=== PATIENT | female | born 1970 | race American Indian/Alaskan Native ===

== ENCOUNTER 2016-12-09 19:09 | Inpatient (IN) | payer OTHER ==
[2016-12-09 20:20] LABS: Mean Corpuscular HGB Conc 26 % (30-34); Platelet Count 596 K/mm3 (140-440); Red Blood Count 2.77 M/mm3 (3.65-5.03)
[2016-12-09 20:31] LABS: Hemoglobin 4.2 gm/dl (10.1-14.3)
[2016-12-09 20:32] LABS: Hematocrit 16.1 % (30.3-42.9); Mean Corpuscular Hemoglobin 15 pg (28-32); Mean Corpuscular Volume 58 fl (79-97); Red Cell Distribution Width 26.6 % (13.2-15.2)
[2016-12-09 20:39] LABS: Anion Gap 18 mmol/L; BUN/Creatinine Ratio 13.33; Blood Urea Nitrogen 8 mg/dL (7-17); Carbon Dioxide 22 mmol/L (22-30); Chloride 103.4 mmol/L (98-107); Glucose 94 mg/dL (65-100); Potassium 4.2 mmol/L (3.6-5.0); Sodium 139 mmol/L (137-145)
[2016-12-09] MEDS ORDERED: NACL 0.9% 500 ML 500 ML IV ONE (21:06)
--- NOTE | 2016-12-09 21:15 | Emergency Department Report ---
ED General Adult HPI - General Chief complaint: Chest Pain Stated complaint: CHEST PAIN/SOB/DIZZINESS/FATIGUE Time Seen by Provider: 12/09/16 21:04 Source: patient, RN notes reviewed, old records reviewed Mode of arrival: Ambulatory Limitations: Physical Limitation - History of Present Illness Initial comments: This is a 46-year-old female. She is previously unknown to me. Does not have a primary care doctor. Does not have a software test manager. Patient has a history of uterine fibroids, irregular menstruation, has been admitted in the past for symptomatic anemia secondary to vaginal bleeding. Patient comes to the ER complaining of malaise, fatigue, weakness, shortness of breath, decreased exercise tolerance. There is no hematemesis. There is no bright red blood per rectum. To me she denies chest pain. Patient states her symptoms today are similar to prior episodes of symptomatic anemia. She reports that she has no pain at this time. She is not vaginally bleeding at this time. States she is not . -: Gradual Consistency: intermittent Improves with: rest Worsens with: movement Associated Symptoms: loss of appetite, malaise, shortness of breath, weakness - Related Data Home Medications Medication Instructions Recorded Confirmed Last Taken No Known Home Medications [No 12/09/16 12/09/16 Unknown Reported Home Medications] Allergies Allergy/AdvReac Type Severity Reaction Status Date / Time egg yolk Allergy Vomiting Verified 12/09/16 19:41 ibuprofen Allergy Swelling Verified 06/28/16 13:19 ED Review of Systems ROS: Stated complaint: CHEST PAIN/SOB/DIZZINESS/FATIGUE Other details as noted in HPI Constitutional: malaise, weakness Eyes: denies: eye discharge ENT: denies: epistaxis Respiratory: shortness of breath Cardiovascular: dyspnea on exertion Gastrointestinal: denies: vomiting Genitourinary: abnormal menses Musculoskeletal: as per HPI Skin: as per HPI Neurological: as per HPI, weakness Psychiatric: as per HPI Hematological/Lymphatic: easy bleeding ED Past Medical Hx - Past Medical History Hx Congestive Heart Failure: No Hx Diabetes: No Hx Psychiatric Treatment: (depression) Hx Asthma: No Hx COPD: No Hx HIV: No Additional medical history: anemia,fibroids - Surgical History Additional Surgical History: tubilagation - Social History Smoking Status: Current Every Day Smoker Substance Use Type: None, Alcohol - Medications Home Medications: Home Medications Medication Instructions Recorded Confirmed Last Taken Type No Known Home Medications [No 12/09/16 12/09/16 Unknown History Reported Home Medications] ED Physical Exam - General Limitations: Physical Limitation General appearance: alert, in no apparent distress - Head Head exam: Present: atraumatic, normocephalic - Eye Eye exam: Present: EOMI. Absent: normal appearance (bilateral conjunctiva are pale), nystagmus - ENT ENT exam: Present: normal exam, normal orophraynx, mucous membranes moist - Neck Neck exam: Present: normal inspection, full ROM. Absent: tenderness, meningismus - Respiratory Respiratory exam: Present: normal lung sounds bilaterally. Absent: respiratory distress, wheezes, rales, rhonchi, stridor, chest wall tenderness - Cardiovascular Cardiovascular Exam: Present: normal rhythm, tachycardia, normal heart sounds. Absent: systolic murmur, diastolic murmur, rubs, gallop - GI/Abdominal GI/Abdominal exam: Present: soft, normal bowel sounds. Absent: distended, tenderness, guarding, rebound, rigid, pulsatile mass - Extremities Exam Extremities exam: Present: normal inspection, full ROM, normal capillary refill. Absent: tenderness, pedal edema, joint swelling, calf tenderness - Back Exam Back exam: Present: normal inspection, full ROM. Absent: tenderness, CVA tenderness (R), CVA tenderness (L), muscle spasm, paraspinal tenderness, vertebral tenderness - Neurological Exam Neurological exam: Present: alert, oriented X3, other (Extraocular movements intact. Tongue midline. No facial droop. Facial sensation intact to light touch in the V1, V2, V3 distribution bilaterally. 5 and 5 strength in 4 extremities.. Sensation is intact to light touch in 4 extremities.). Absent: motor sensory deficit - Psychiatric Psychiatric exam: Present: normal affect, normal mood - Skin Skin exam: Present: warm, dry, intact, normal color. Absent: rash ED Course Vital Signs 12/09/16 12/09/16 12/09/16 19:34 22:00 22:01 Temperature 98.4 F Pulse Rate 107 H Respiratory 20 20 20 Rate Blood Pressure 114/71 Blood Pressure [Right] O2 Sat by Pulse 100 100 Oximetry 12/09/16 12/09/16 22:04 22:34 Temperature 98.7 F Pulse Rate 84 Respiratory 20 20 Rate Blood Pressure Blood Pressure 114/67 [Right] O2 Sat by Pulse 100 Oximetry - Reevaluation(s) Reevaluation #1: 12/09/16 21:13 differential diagnosis: Symptomatic anemia, menorrhagia, MetroragGhia assessment and plan: 46-year-old female who does not have a primary care doctor or software test manager, has a sonographically confirmed presence of fibroids from an ultrasound performed May 2016, with profound symptomatic anemia, and thrombocytosis, with a hemoglobin/hematocrit of 4/16. To me she denies chest pain. She reports that she is not . She denies hematemesis of bright red blood per rectum. IV has been ordered. IV fluids have been ordered. Red blood cell transfusion has been ordered. I doubt acute coronary syndrome secondary to her underlying anemia. Her EKG is morphologically abnormal, may be due to demand. I have placed a page to the Hospital physician, I am awaiting them to call back. Reevaluation #2: 12/09/16 21:27 Dr Breaux accepts patient to her service ED Medical Decision Making - Lab Data Result diagrams: 12/09/16 20:05 12/09/16 20:05 Vital Signs 12/09/16 19:34 Temperature 98.4 F Pulse Rate 107 H Respiratory 20 Rate Blood Pressure 114/71 Labs 12/09/16 12/09/16 20:05 20:05 WBC 9.0 RBC 2.77 L Hgb 4.2 L* Hct 16.1 L* MCV 58 L MCH 15 L MCHC 26 L RDW 26.6 H Plt Count 596 H Sodium 139 Potassium 4.2 Chloride 103.4 Carbon Dioxide 22 Anion Gap 18 BUN 8 Creatinine 0.6 L Estimated GFR > 60 BUN/Creatinine Ratio 13.33 Glucose 94 Calcium 10.0 Troponin T < 0.010 - EKG Data 12/09/16 21:14 Sinus tachycardia, left axis deviation, poor R-wave progression, atrial abnormality, T-wave from the mallet, abnormal EKG, not morphologically consistent with STEMI, appears essentially unchanged from prior EKG from May 2016. Critical Care Time: Yes Critical care time in (mins) excluding proc time.: 35 Critical care attestation.: If time is entered above; I have spent that time in minutes in the direct care of this critically ill patient, excluding procedure time. Critical Care Time: Critical care time includes multiple bedside evaluations, interpretation of laboratory studies, time spent discussing patient's care with hospital medicine consult, and time spent managing a patient with profound symptomatic anemia requiring packed red blood cell transfusion. This excludes procedure time. ED Disposition Clinical Impression: Symptomatic anemia Disposition: OP ADMITTED IP TO THIS HOSP Is pt being admited?: Yes Condition: Good
[2016-12-09 21:34] LABS: Basophils % (Manual) 0 % (0.0-1.8); Blastocytes % (Manual) 0 %; Eosinophils % (Manual) 0 % (0.0-4.3)
[2016-12-09 21:37] LABS: Hypochromasia 3+
[2016-12-09 21:38] LABS: Microcytosis 2+; Ovalocytes 1+; Tear Drop Cells 1+
[2016-12-09 21:39] LABS: Elliptocytes 1+; Large Platelets 1+
[2016-12-09 21:40] LABS: Platelet Estimate Appears Increased
[2016-12-09 21:41] LABS: Diff Status Complete; Macrocytosis 1+
[2016-12-09] MEDS ORDERED: TYLENOL ONE (22:27)
[2016-12-09] MEDS ORDERED: ZOFRAN IV PRN (22:29)
[2016-12-09] MEDS ORDERED: REGLAN PO PRN (22:29)
[2016-12-09] MEDS ORDERED: TYLENOL PO PRN (22:29)
[2016-12-09] MEDS ORDERED: MILK OF MAGNESIA PO PRN (22:29)
[2016-12-09] MEDS ORDERED: PERCOCET 5/325 PO PRN (22:29)
[2016-12-09] MEDS ORDERED: ALUM-MAG HYDROX-SIMETH 200-200-20MG/5ML PO PRN (22:29)
[2016-12-09] MEDS ORDERED: APRESOLINE IV PRN (22:29)
--- NOTE | 2016-12-09 22:31 | History and Physical Report ---
History of Present Illness Date of examination: 12/09/16 Date of admission: 12/09/16 21:25 Chief complaint: Generalized weakness History of present illness: This is a 46 y/o female with h/o menorrhagia and fibroid uterus presented with generalized weakness for 1 week. Patient states that she has been experiencing heavy menstrual bleeding with large blood clots during the last weekend. She started to feel progressively weak and lightheaded. She had similar experience last year when she required blood transfusion. She couldn't manage relief from her job so that is why she didn't present a ED earlier. She states that she has history of fibroids with menorrhagia without any outpatient follow-up. During her last admission she was evaluated by STENOTYPE MACHINE OPERATOR and required to have follow-up outpatient which she was unable to do because of lack of insurance. In the ER today her hemoglobin is 4.2. Transfusion order initiated in the ER and she is getting admitted for further stabilization and management. Past medical History: h/o anemia and depression. Not on any medications for depression. Past surgical History: s/p tubal ligation Social History: Lives with family, denies any smoking, drinking and elicit drug abuse. Family History: Significant for hypertension. Review of System: Constitutional: no fever, no chills, no weight loss, generalized weakness Ears, eyes, nose, mouth and throat: no nasal congestion, no nasal discharge, no sinus pressure, no vision change, no red eye. Neck: No neck pain or rigidity. Cardiovascular: No chest pain, no orthopnea, no palpitations, no leg swelling Respiratory: + Exertional shortness of breath, no cough, no congestion, no wheezing Gastrointestinal: no abdominal pain, no nausea, no vomiting Genitourinary : no dysuria, no hematuria Musculoskeletal: no joint swelling or muscle ache Integumentary: no rash, no pruritis Neurological: no parathesias, no numbness, no tingling Endocrine: no cold or heat intolerance, no polyuria or polydipsia Hematologic/Lymphatic: no easy bruising, no easy bleeding, no gland swelling Allergic/Immunologic: no urticaria, no angioedema. Medications and Allergies Allergies Allergy/AdvReac Type Severity Reaction Status Date / Time egg yolk Allergy Vomiting Verified 12/09/16 19:41 ibuprofen Allergy Swelling Verified 06/28/16 13:19 Home Medications Medication Instructions Recorded Confirmed Last Taken Type No Known Home Medications [No 02/09/17 02/09/17 Unknown History Reported Home Medications] Exam - Physical Exam Narrative exam: GENERAL: This is well-developed -[place] female lying on bed appeared to be in no discomfort. HEENT: Normocephalic. Atraumatic. Extraocular motions are intact. Pale conjunctival without any congestion or icterus. Patient has moist mucous membranes. External auditory canal and nares patent bilaterally. NECK: Supple. Trachea midline. No JVD, thyromagaly or lymphadenopathy. CHEST/LUNGS: Clear to auscultated bilaterally. There is no respiratory distress noted, breathing nonlabored. No wheezes crackles or rhonchi. HEART/CARDIOVASCULAR: Regular in rhythm, tachycardic. PMI at the apex. There is no gallop rub or murmur. ABDOMEN: Abdomen is soft, nontender. Patient has normal bowel sounds. There is no abdominal distention. No organomagaly or rigidity. SKIN: There is no rash, no erythrema. There is no diaphoresis. Warm and dry. NEUROLOGY: The patient is awake, alert, and oriented. The patient is cooperative. The patient has normal speech. No focal motor deficit. MUSCULOSKELETAL: No joint effusion or tenderness. Muscle strength equal bilaterally. No muscle wasting. EXTRIMITY: No edema, cyanosis or clubbing. PSYCH: No depression or anxiety noted. Cooperative. - Constitutional Vitals: Temp Pulse Resp BP Pulse Ox 98.7 F 84 20 114/67 100 12/09/16 22:04 12/09/16 22:04 12/09/16 22:04 12/09/16 22:04 12/09/16 22:04 Results - Labs CBC & Chem 7: 12/10/16 04:52 12/09/16 20:05 Labs: Laboratory Last Values WBC 9.0 K/mm3 (4.5-11.0) 12/09/16 20:05 RBC 2.77 M/mm3 (3.65-5.03) L 12/09/16 20:05 Hgb 4.2 gm/dl (10.1-14.3) L* 12/09/16 20:05 Hct 16.1 % (30.3-42.9) L* 12/09/16 20:05 MCV 58 fl (79-97) L 12/09/16 20:05 MCH 15 pg (28-32) L 12/09/16 20:05 MCHC 26 % (30-34) L 12/09/16 20:05 RDW 26.6 % (13.2-15.2) H 12/09/16 20:05 Plt Count 596 K/mm3 (140-440) H 12/09/16 20:05 Add Manual Diff Complete 12/09/16 20:05 Total Counted 100 12/09/16 20:05 Seg Neuts % (Manual) 68.0 % (40.0-70.0) 12/09/16 20:05 Band Neutrophils % 0 % 12/09/16 20:05 Lymphocytes % (Manual) 24.0 % (13.4-35.0) 12/09/16 20:05 Reactive Lymphs % (Man) 0 % 12/09/16 20:05 Monocytes % (Manual) 8.0 % (0.0-7.3) H 12/09/16 20:05 Eosinophils % (Manual) 0 % (0.0-4.3) 12/09/16 20:05 Basophils % (Manual) 0 % (0.0-1.8) 12/09/16 20:05 Metamyelocytes % 0 % 12/09/16 20:05 Myelocytes % 0 % 12/09/16 20:05 Promyelocytes % 0 % 12/09/16 20:05 Blast Cells % 0 % 12/09/16 20:05 Nucleated RBC % Not Reportable 12/09/16 20:05 Seg Neutrophils # Man 6.1 K/mm3 (1.8-7.7) 12/09/16 20:05 Band Neutrophils # 0.0 K/mm3 12/09/16 20:05 Lymphocytes # (Manual) 2.2 K/mm3 (1.2-5.4) 12/09/16 20:05 Abs React Lymphs (Man) 0.0 K/mm3 12/09/16 20:05 Monocytes # (Manual) 0.7 K/mm3 (0.0-0.8) 12/09/16 20:05 Eosinophils # (Manual) 0.0 K/mm3 (0.0-0.4) 12/09/16 20:05 Basophils # (Manual) 0.0 K/mm3 (0.0-0.1) 12/09/16 20:05 Metamyelocytes # 0.0 K/mm3 12/09/16 20:05 Myelocytes # 0.0 K/mm3 12/09/16 20:05 Promyelocytes # 0.0 K/mm3 12/09/16 20:05 Blast Cells # 0.0 K/mm3 12/09/16 20:05 WBC Morphology Not Reportable 12/09/16 20:05 Hypersegmented Neuts Not Reportable 12/09/16 20:05 Hyposegmented Neuts Not Reportable 12/09/16 20:05 Hypogranular Neuts Not Reportable 12/09/16 20:05 Smudge Cells Not Reportable 12/09/16 20:05 Toxic Granulation Not Reportable 12/09/16 20:05 Toxic Vacuolation Not Reportable 12/09/16 20:05 Dohle Bodies Not Reportable 12/09/16 20:05 Pelger-Huet Anomaly Not Reportable 12/09/16 20:05 Sean Rods Not Reportable 12/09/16 20:05 Platelet Estimate Appears increased 12/09/16 20:05 Clumped Platelets Not Reportable 12/09/16 20:05 Plt Clumps, EDTA Not Reportable 12/09/16 20:05 Large Platelets 1+ 12/09/16 20:05 Giant Platelets Not Reportable 12/09/16 20:05 Platelet Satelliting Not Reportable 12/09/16 20:05 Plt Morphology Comment Not Reportable 12/09/16 20:05 RBC Morphology Not Reportable 12/09/16 20:05 Dimorphic RBCs Yes 12/09/16 20:05 Polychromasia Not Reportable 12/09/16 20:05 Hypochromasia 3+ 12/09/16 20:05 Poikilocytosis Not Reportable 12/09/16 20:05 Anisocytosis Not Reportable 12/09/16 20:05 Microcytosis 2+ 12/09/16 20:05 Macrocytosis 1+ 12/09/16 20:05 Spherocytes Not Reportable 12/09/16 20:05 Pappenheimer Bodies Not Reportable 12/09/16 20:05 Sickle Cells Not Reportable 12/09/16 20:05 Target Cells Not Reportable 12/09/16 20:05 Tear Drop Cells 1+ 12/09/16 20:05 Ovalocytes 1+ 02/09/17 20:05 Helmet Cells Not Reportable 12/09/16 20:05 Correa-[place] Bodies Not Reportable 12/09/16 20:05 [place] Rings Not Reportable 12/09/16 20:05 [place] Cells Not Reportable 12/09/16 20:05 Bite Cells Not Reportable 12/09/16 20:05 Crenated Cell Not Reportable 12/09/16 20:05 Elliptocytes 1+ 12/09/16 20:05 Acanthocytes (Spur) Not Reportable 12/09/16 20:05 Rouleaux Not Reportable 12/09/16 20:05 Hemoglobin C Crystals Not Reportable 12/09/16 20:05 Schistocytes Not Reportable 12/09/16 20:05 Malaria parasites Not Reportable 12/09/16 20:05 Gavin Bodies Not Reportable 12/09/16 20:05 Hem Pathologist Commnt No 12/09/16 20:05 Sodium 139 mmol/L (137-145) 12/09/16 20:05 Potassium 4.2 mmol/L (3.6-5.0) 12/09/16 20:05 Chloride 103.4 mmol/L (98-107) 12/09/16 20:05 Carbon Dioxide 22 mmol/L (22-30) 12/09/16 20:05 Anion Gap 18 mmol/L 12/09/16 20:05 BUN 8 mg/dL (7-17) 12/09/16 20:05 Creatinine 0.6 mg/dL (0.7-1.2) L 12/09/16 20:05 Estimated GFR > 60 ml/min 12/09/16 20:05 BUN/Creatinine Ratio 13.33 % 12/09/16 20:05 Glucose 94 mg/dL (65-100) 12/09/16 20:05 Calcium 10.0 mg/dL (8.4-10.2) 12/09/16 20:05 Troponin T < 0.010 ng/mL (0.00-0.029) 12/09/16 20:05 Blood Type AB POSITIVE 12/09/16 20:08 Antibody Screen Negative 12/09/16 20:08 Crossmatch See Detail 12/09/16 20:08 Assessment and Plan Assessment and plan: Severe symptomatic anemia Menorrhagia with history of fibroid uterus History of depression, will need outpatient psych follow-up Generalized weakness, due to severe anemia Plan: Admit to medicine Transfuse 4 units of packed RBC Monitor vitals and provide supportive care Monitor H&H, IV fluids Pepcid for GI prophylaxis, SCD for DVT prophylaxis It took me about 45 minutes for initial care of this patient including history and physical, reviewing initial lab results and ER documents, placing admission orders, bedside counseling and coordination of care. Advance Directives: Yes VTE prophylaxis?: Mechanical Plan of care discussed with patient/family: Yes
[2016-12-09] MEDS ORDERED: NACL 0.45% 1000 ML 1,000 ML IV SCH (23:00)
[2016-12-10] MEDS ORDERED: NACL 0.9% 500 ML 500 ML IV ONE (05:26)
[2016-12-10 05:44] LABS: Hematocrit 21.8 % (30.3-42.9); Hemoglobin 6.3 gm/dl (10.1-14.3)
[2016-12-10] MEDS: FEOSOL PO SCH ×3 (08:54→22:10)
--- NOTE | 2016-12-10 09:13 | Admit Criteria Form ---
Admission Criteria Documentation: ANEMIA, IRON DEFICIENCY OR UNSPECIFIED Clinical Indications for Inpatient Care (Place 'X' for any and all applicable criteria): Admission is indicated for ANY ONE of the following(1)(2)(3)(4)(5)(6)(7): [X] I. Inpatient admission required rather than observation care (Also use Anemia, Iron Deficiency or Unspecified: Observation Care guideline as appropriate) because of ANY ONE of the following: [] a) Hemodynamic instability that is severe or persistent [] b) Active bleeding that cannot be rapidly controlled [X] c) CVS symptoms (i.e., dyspnea, chest pain, heart failure) that are severe or persistent [] d) Neurologic symptoms (i.e., cognitive impairment, recurrent syncope or near syncope) that are severe or persistent [] e) Cardiac arrhythmias of immediate concern [] f) Acute peripheral ischemia (e.g., pulseless, cool, mottled, or cyanotic extremity) [] g) High-risk low platelet count [] h) Acute renal failure [] i) Ongoing transfusion for blood loss (greater than 2 units) [] j) IV fluid to replace significant ongoing (eg, >24 hours) losses (> 3 L/m2 per day) [] k) Pulmonary artery catheter monitoring [] l) Supplemental oxygen or respiratory treatments for over 24 hours that are performable only in acute inpatient setting [] m) Immediate inpatient surgery [] n) Other condition, treatment or monitoring requiring inpatient admission [] II Active massive hemorrhage [] III. Active hemolysis with rapidly progressive anemia [A](6) Extended stay beyond goal length of stay may be needed for (17)(18) []a) Diagnosed cause of anemia requiring longer hospitalization (eg, active GI bleeding, immune hemolysis requiring electrophoresis, complications of malignancy requiring acute care []b) Continued emergent anemia indicators (23) []c) Transfusion reactions []d) Associated leukopenia or thrombocytopenia needing inpatient care []e) Active comorbidities (eg, renal failure, heart failure) The original [facility] Care Guidelines content created by [facility] Care Guidelines has been revised. The portions of the content which have been revised are identified through the use of italic text or in bold. [facility] Guidelines has neither reviewed nor approved the modified material. All other unmodified content is copyright [facility] Care Guidelines. Please see references footnoted in the original [facility] edition 2016 Admission Criteria Met: Yes
[2016-12-10] MEDS: COLACE PO SCH ×2 (10:14→22:10)
[2016-12-10] MEDS: PEPCID PO SCH ×2 (10:14→22:10)
--- NOTE | 2016-12-10 13:40 | Progress Note ---
Assessment and Plan Assessment and plan: Symptomatic anemia secondary to vaginal bleeding - Transfused 2 units of blood, transfuse 2 more units - Check posttransfusion hematocrit - AGRICULTURAL SCIENCE PROFESSOR consulted, they did ultrasound and give her medroxyprogesterone - She will be followed by AGRICULTURAL SCIENCE PROFESSOR as an outpatient, ultimately she may need hysterectomy DVT prophylaxis ; - On SCD Disposition - will be discharged once hemoglobin and hematocrit is stable History Interval history: Patient feels tired, no chest pain or shortness of breath. No active vagina bleeding. Hospitalist Physical - Physical exam Narrative exam: Not in cardiopulmonary distress. The patient appeared well nourished and normally developed. Vital signs as documented. Head exam is unremarkable. Pale Conjunctiva nonicteric sclera Neck is without jugular venous distension, thyromegaly, or carotid bruits. Lungs are clear to auscultation. Cardiac exam reveals regular rate and Rhythm. First and second heart sounds normal. No murmurs, rubs or gallops. Abdominal exam reveals normal bowel sounds, no masses, no organomegaly and no aortic enlargement. Extremities are nonedematous and both femoral and pedal pulses are normal. HEALTH SCIENCE WRITER: Alert and oriented 3. No focal weakness. - Constitutional Vitals: Temp Pulse Resp BP Pulse Ox 98.6 F 72 16 109/66 100 12/10/16 11:31 12/10/16 11:31 12/10/16 11:31 12/10/16 11:31 12/10/16 10:31 Results - Labs CBC & Chem 7: 12/10/16 04:52 12/09/16 20:05 Labs: Laboratory Last Values WBC 9.0 K/mm3 (4.5-11.0) 12/09/16 20:05 RBC 2.77 M/mm3 (3.65-5.03) L 12/09/16 20:05 Hgb 6.3 gm/dl (10.1-14.3) L 12/10/16 04:52 Hct 21.8 % (30.3-42.9) L 12/10/16 04:52 MCV 58 fl (79-97) L 12/09/16 20:05 MCH 15 pg (28-32) L 12/09/16 20:05 MCHC 26 % (30-34) L 12/09/16 20:05 RDW 26.6 % (13.2-15.2) H 12/09/16 20:05 Plt Count 596 K/mm3 (140-440) H 12/09/16 20:05 Add Manual Diff Complete 12/09/16 20:05 Total Counted 100 12/09/16 20:05 Seg Neuts % (Manual) 68.0 % (40.0-70.0) 12/09/16 20:05 Band Neutrophils % 0 % 12/09/16 20:05 Lymphocytes % (Manual) 24.0 % (13.4-35.0) 12/09/16 20:05 Reactive Lymphs % (Man) 0 % 12/09/16 20:05 Monocytes % (Manual) 8.0 % (0.0-7.3) H 12/09/16 20:05 Eosinophils % (Manual) 0 % (0.0-4.3) 12/09/16 20:05 Basophils % (Manual) 0 % (0.0-1.8) 12/09/16 20:05 Metamyelocytes % 0 % 12/09/16 20:05 Myelocytes % 0 % 12/09/16 20:05 Promyelocytes % 0 % 12/09/16 20:05 Blast Cells % 0 % 12/09/16 20:05 Nucleated RBC % Not Reportable 12/09/16 20:05 Seg Neutrophils # Man 6.1 K/mm3 (1.8-7.7) 12/09/16 20:05 Band Neutrophils # 0.0 K/mm3 12/09/16 20:05 Lymphocytes # (Manual) 2.2 K/mm3 (1.2-5.4) 12/09/16 20:05 Abs React Lymphs (Man) 0.0 K/mm3 12/09/16 20:05 Monocytes # (Manual) 0.7 K/mm3 (0.0-0.8) 12/09/16 20:05 Eosinophils # (Manual) 0.0 K/mm3 (0.0-0.4) 12/09/16 20:05 Basophils # (Manual) 0.0 K/mm3 (0.0-0.1) 12/09/16 20:05 Metamyelocytes # 0.0 K/mm3 12/09/16 20:05 Myelocytes # 0.0 K/mm3 12/09/16 20:05 Promyelocytes # 0.0 K/mm3 12/09/16 20:05 Blast Cells # 0.0 K/mm3 12/09/16 20:05 WBC Morphology Not Reportable 12/09/16 20:05 Hypersegmented Neuts Not Reportable 12/09/16 20:05 Hyposegmented Neuts Not Reportable 12/09/16 20:05 Hypogranular Neuts Not Reportable 12/09/16 20:05 Smudge Cells Not Reportable 12/09/16 20:05 Toxic Granulation Not Reportable 12/09/16 20:05 Toxic Vacuolation Not Reportable 12/09/16 20:05 Dohle Bodies Not Reportable 12/09/16 20:05 Pelger-Huet Anomaly Not Reportable 12/09/16 20:05 Sean Rods Not Reportable 12/09/16 20:05 Platelet Estimate Appears increased 12/09/16 20:05 Clumped Platelets Not Reportable 12/09/16 20:05 Plt Clumps, EDTA Not Reportable 12/09/16 20:05 Large Platelets 1+ 12/09/16 20:05 Giant Platelets Not Reportable 12/09/16 20:05 Platelet Satelliting Not Reportable 12/09/16 20:05 Plt Morphology Comment Not Reportable 12/09/16 20:05 RBC Morphology Not Reportable 12/09/16 20:05 Dimorphic RBCs Yes 12/09/16 20:05 Polychromasia Not Reportable 12/09/16 20:05 Hypochromasia 3+ 12/09/16 20:05 Poikilocytosis Not Reportable 12/09/16 20:05 Anisocytosis Not Reportable 12/09/16 20:05 Microcytosis 2+ 12/09/16 20:05 Macrocytosis 1+ 12/09/16 20:05 Spherocytes Not Reportable 12/09/16 20:05 Pappenheimer Bodies Not Reportable 12/09/16 20:05 Sickle Cells Not Reportable 12/09/16 20:05 Target Cells Not Reportable 12/09/16 20:05 Tear Drop Cells 1+ 12/09/16 20:05 Ovalocytes 1+ 12/09/16 20:05 Helmet Cells Not Reportable 12/09/16 20:05 Correa-Rippey Bodies Not Reportable 12/09/16 20:05 Bandera Rings Not Reportable 12/09/16 20:05 [place] Cells Not Reportable 12/09/16 20:05 Bite Cells Not Reportable 12/09/16 20:05 Crenated Cell Not Reportable 12/09/16 20:05 Elliptocytes 1+ 12/09/16 20:05 Acanthocytes (Spur) Not Reportable 12/09/16 20:05 Rouleaux Not Reportable 12/09/16 20:05 Hemoglobin C Crystals Not Reportable 12/09/16 20:05 Schistocytes Not Reportable 12/09/16 20:05 Malaria parasites Not Reportable 12/09/16 20:05 Gavin Bodies Not Reportable 12/09/16 20:05 Hem Pathologist Commnt No 12/09/16 20:05 Sodium 139 mmol/L (137-145) 12/09/16 20:05 Potassium 4.2 mmol/L (3.6-5.0) 12/09/16 20:05 Chloride 103.4 mmol/L (98-107) 12/09/16 20:05 Carbon Dioxide 22 mmol/L (22-30) 12/09/16 20:05 Anion Gap 18 mmol/L 12/09/16 20:05 BUN 8 mg/dL (7-17) 12/09/16 20:05 Creatinine 0.6 mg/dL (0.7-1.2) L 12/09/16 20:05 Estimated GFR > 60 ml/min 12/09/16 20:05 BUN/Creatinine Ratio 13.33 % 12/09/16 20:05 Glucose 94 mg/dL (65-100) 12/09/16 20:05 Calcium 10.0 mg/dL (8.4-10.2) 12/09/16 20:05 Troponin T < 0.010 ng/mL (0.00-0.029) 12/10/16 01:32 HCG, Quant < 2 mIU/mL (0-4) 12/09/16 Unknown Blood Type AB POSITIVE 12/09/16 20:08 Antibody Screen Negative 12/09/16 20:08 Crossmatch See Detail 12/09/16 20:08
--- NOTE | 2016-12-10 14:51 | Consultation ---
History of Present Illness Consult date: 12/10/16 Reason for consult: menorrhagia History of present illness: This is a 46 yo LMP 1 weeks ago here for lightheadedness s/sx of anemia. Blood count noted to be 4.9 in process of receiving 4 U of blood. Patient reports that she has been bleeding heavy for 10 years. 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 She still continued to have heavy erma occuring every month changing pad every 15 min. Her periods have no changed but she has not had any insurance and has not be evaluated nor treated for hevy vaginal bleeding. She is here now because of sx of chronic anemia. I was called for consult of menorrhagia. Past History Past Surgical History: no surgical history Family/Genetic History: none Social history: no significant social history, single - Obstetrical History : 4 Medications and Allergies Allergies Allergy/AdvReac Type Severity Reaction Status Date / Time egg yolk Allergy Vomiting Verified 12/09/16 19:41 ibuprofen Allergy Swelling Verified 06/28/16 13:19 Home Medications Medication Instructions Recorded Confirmed Last Taken Type No Known Home Medications [No 12/09/16 12/09/16 Unknown History Reported Home Medications] Active Meds: Active Medications Acetaminophen (Tylenol) 650 mg PO Q4H PRN PRN Reason: Pain MILD(1-3)/Fever >100.5/HESTER Last Admin: 12/09/16 22:34 Dose: 650 mg Al Hydrox/Mg Hydrox/Simethicone (Alum-Mag Hydrox-Simeth [phone]/5ml) 30 ml PO Q4H PRN PRN Reason: Indigestion Docusate Sodium (Colace) 100 mg PO BID [facility] Last Admin: 12/10/16 10:14 Dose: 100 mg Famotidine (Pepcid) 10 mg PO BID [facility] Last Admin: 12/10/16 10:14 Dose: 10 mg Ferrous Sulfate (Feosol) 325 mg PO TID [facility] Last Admin: 12/10/16 14:27 Dose: 325 mg Hydralazine HCl (Apresoline) 5 mg IV Q30MIN PRN PRN Reason: Hypertension Sodium Chloride (Nacl 0.45% 1000 Ml) 1,000 mls @ 125 mls/hr IV DIRECT [facility] Last Admin: 12/10/16 08:56 Dose: 125 mls/hr Magnesium Hydroxide (Milk Of Magnesia) 30 ml PO Q4H PRN PRN Reason: Constipation Metoclopramide HCl (Reglan) 10 mg PO Q6H PRN PRN Reason: Nausea And Vomiting Ondansetron HCl (Zofran) 4 mg IV Q8H PRN PRN Reason: N/V unrelieved by Reglan Oxycodone/Acetaminophen (Percocet 5/325) 1 tab PO Q6H PRN PRN Reason: Pain, Moderate (4-6) Review of Systems All systems: negative Constitutional: weakness, no weight loss, no weight gain, no fever, no chills, no anorexia Eyes: deferred Ears, nose, mouth and throat: deferred Cardiovascular: no chest pain, no palpitations, no edema Breasts: normal, no pain Gastrointestinal: no abdominal pain, no nausea, no hematochezia Genitourinary: deferred Rectal Exam: deferred Integumentary: deferred Neurological: weakness - Vital Signs Vital signs: Vital Signs Temp Pulse Resp BP 98.4 F 107 H 20 114/71 12/09/16 19:34 12/09/16 19:34 12/09/16 19:34 12/09/16 19:34 Temp Pulse Resp BP Pulse Ox 98.6 F 75 18 144/65 100 12/10/16 14:24 12/10/16 14:24 12/10/16 14:24 12/10/16 14:24 12/10/16 14:24 - Physical Exam Breasts: Positive: normal Cardiovascular: Regular rate, Normal S1, Normal S2 Lungs: Positive: Clear to auscultation, Normal air movement Abdomen: Positive: normal appearance, soft, normal bowel sounds. Negative: distention, tenderness Genitourinary (Female): Positive: normal external genitalia, normal perenium Vulva: both: normal Vagina: Positive: normal moisture. Negative: discharge, rectocele Cervix: Positive: lesion. Negative: ulceration, discharge, friable Uterus: Positive: normal size, normal contour. Negative: tender Adnexa: both: normal Anus/Rectum: Positive: normal perianal skin, heme negative Extremities: Positive: normal Deep Tendon Reflex Grade: Normal +2 Results Result Diagrams: 12/10/16 04:52 12/09/16 20:05 Abnormal lab results 12/10/16 Range/Units 04:52 Hgb 6.3 L (10.1-14.3) gm/dl Hct 21.8 L (30.3-42.9) % All other labs normal. Assessment and Plan A/P 46 yo with chronic anemia and menorrhagia 1. recommend continue blood transfusion appropriate >h 9 2. Recommneded depo provera 150 mg IM x1 and every 3mos ( reviewed se of meds which include irreg bleeding first 3 mos, loss of hair, weight gain, and bone loss discussed with patient and agrees with taking treatment plan 3. Discussed need to continue with regimen and she will try to get insurance to cover visit for next IM in March 09, 2017 4. Ultimately recommend hysterectomy 5. US toa assess for fibroids and assess intra uterine lining
[2016-12-10] MEDS ORDERED: DEPO-PROVERA (CONTRACEPTION) IM ONE (17:00)
[2016-12-10 19:35] LABS: Hemoglobin 9.2 gm/dl (10.1-14.3)
[2016-12-10 19:40] LABS: Hematocrit 30.8 % (30.3-42.9)
[2016-12-11 08:23] VITALS: BP 110/70
--- NOTE | 2016-12-11 09:49 | Discharge Summary ---
Providers - Providers Date of Admission: 12/09/16 21:25 Date of discharge: 12/11/16 Attending physician: JOSSIE QUICK MD 12/10/16 12:38 Consult to Physician [CONS] Routine Consulting Provider: RENEE SADLER Reason For Exam: severe anemia, heavy menstration Place consult to:: Dr Sadler Notified:: answering service Phone number called:: [phone] Was contact made?: Yes If yes, spoke with:: Isa Time called:: 13:34 Primary care physician: FAN BLADE ALIGNER Hospitalization Reason for admission: Symptomatic anemia Condition: Good Hospital course: Patient was admitted for severe symptomatic anemia secondary to menorrhagia and transfused to his 4 units of blood. Admission hemoglobin was 4.2 and hemoglobin currently is 9.2. Patient is hemodynamically stable. DIGITAL MARKETING OFFICER was consulted and did vaginal U/S and gave her medroxyprogestrone acetate. She will be followed with Dr Sadler as an O/P and will be given the medroxyprogestrone acetate IM monthly. I gave the patient Dr Sadler's number and she will call and schedule an appointment. Disposition: DISCHARGED TO HOME OR SELFCARE Time spent for discharge: 34 minutes - Discharge Diagnoses (1) Symptomatic anemia Status: Acute (2) Menometrorrhagia Status: Chronic (3) Uterine fibroid Status: Chronic Qualifiers: Uterine leiomyoma location: U Core Measure Documentation - Palliative Care Palliative Care/ Comfort Measures: Not Applicable - Core Measures Any of the following diagnoses?: none Exam - Physical Exam Narrative exam: Not in cardiopulmonary distress. The patient appeared well nourished and normally developed. Vital signs as documented. Head exam is unremarkable. [place] Conjunctiva nonicteric sclera Neck is without jugular venous distension, thyromegaly, or carotid bruits. Lungs are clear to auscultation. Cardiac exam reveals regular rate and Rhythm. First and second heart sounds normal. No murmurs, rubs or gallops. Abdominal exam reveals normal bowel sounds, no masses, no organomegaly and no aortic enlargement. Extremities are nonedematous and both femoral and pedal pulses are normal. SKULL SPLITTER: Alert and oriented 3. No focal weakness. - Constitutional Vitals: Temp Pulse Resp BP Pulse Ox 98.2 F 62 18 110/70 100 12/11/16 08:00 12/11/16 08:00 12/11/16 08:00 12/11/16 08:00 12/11/16 08:00 Plan Activity: no restrictions Weight Bearing Status: Full Weight Bearing Diet: regular Follow up with: PRIMARY CARE, [Primary Care Provider] - 7 Days (patient was given Renee Buckner's office number to call. and she said she will call and mke an appointment.) Prescriptions: Ferrous Sulfate [Ferrous Sulfate Oral Liq 300 Mg/5 Ml] 300 mg PO TID #2 bottle
--- NOTE | 2016-12-11 11:07 | Ultrasound Report ---
TRANSABDOMINAL AND TRANSVAGINAL PELVIC ULTRASOUND: 12/10/16 CLINICAL: Severe anemia. Heavy menses. FINDINGS: Transabdominal and transvaginal pelvic ultrasound demonstrated a mildly enlarged fibroid uterus measuring 12.7 x 7.4 x 7.5 cm. An anterior submucosal laterally to the right of midline measures 2.1 cm. A posterior left subserosal fibroid measures 2.4 cm.The endometrium is mildly thickened and measures 12.5 mm AP thickness. Normal ovaries. The right ovary measures 4.6 x 2.2 x 2.2cm. The left ovary measures 2.7 x 2.1 x 1.6cm. No adnexal mass. Mild free fluid in the right adnexa. Normal urinary bladder. IMPRESSION: Small uterine leiomyomata with a 2.1 cm submucosal fibroid. Normal ovaries.
[2016-12-11] MEDS: PEPCID PO SCH (11:26)
[2016-12-11] MEDS: FEOSOL PO SCH (11:26)
[2016-12-11] MEDS: COLACE PO SCH (11:26)
== END 2016-12-11 12:15 | disposition home or self-care (01) | DRG 812 ==
LOC: ED 19:09 → 3A 21:25
PROVIDERS: ADMIT Internal Medicine; ATTEND Internal Medicine
PROC: 30233N1 Transfusion of Nonautologous Red Blood Cells into Peripheral Vein, Percutaneous Approach (ICD-10-PCS; principal; 2016-12-10)
DX: D64.9 Anemia, unspecified (principal); N92.0 Excessive and frequent menstruation with regular cycle; D25.9 Leiomyoma of uterus, unspecified; F32.9 Major depressive disorder, single episode, unspecified; Z88.8 Allergy status to other drugs, medicaments and biological substances; Z91.018 Allergy to other foods; Z98.51 Tubal ligation status; Z82.49 Family history of ischemic heart disease and other diseases of the circulatory system
CPT/HCPCS: 36415; 36430; 76830; 76856; 80048; 84484; 84702; 85007; 85014; 85018; 85025; 86850; 86900; 86901; 86920; 93005; 93010; 99291; 99406; J1050; J7040; P9016

== ENCOUNTER 2021-04-13 06:46 | Emergency (ER) | payer BC ==
[2021-04-13 07:40] VITALS: BP 179/108
[2021-04-13] MEDS ORDERED: SODIUM CHLORIDE 0.9% 1000 ML 1,000 ML IV ONE (18:23)
[2021-04-13] MEDS ORDERED: KETOROLAC 30 MG/1 ML INJ IV ONE (18:23)
--- NOTE | 2021-04-13 18:33 | Emergency Department Report ---
ED Abdominal Pain HPI - General Chief Complaint: Back Pain/Injury Stated Complaint: HIP/BACK/LEG PAIN PUI?: No Source: patient Mode of arrival: Ambulatory Limitations: No Limitations - History of Present Illness Initial Comments: This is a 50-year-old female with no prior medical history who presents to ED complaining of left-sided flank pain radiating down to her hip x3 to 4 days. Patient states initially pain began in her left hip region radiating in the mornings to her thigh. Patient states that the past couple of days pain is localized to her left lower back radiating downwards to the hip and thigh. Patient denies any fall, trauma or injuries. Patient does admit that she has been having urinary frequency since symptoms began. Patient states that pain is worsened with movement of the left leg. She denies any swelling to the thigh or leg. MD Complaint: flank pain Location: L flank Severity: moderate Severity scale (0 -10): 8 Quality: aching, sharp, burning Worsens With: movement - Related Data Previous Rx's Medication Instructions Recorded Last Taken Type Ferrous Sulfate [Ferrous Sulfate 300 mg PO TID #2 bottle 12/11/16 Unknown Rx Oral Liq 300 Mg/5 Ml] Acetaminophen [Mapap] 1,000 mg PO QID PRN #30 tablet 10/29/19 Unknown Rx Amoxicillin/Potassium Clav 1 each PO BID #20 tablet 10/29/19 Unknown Rx [Augmentin 875-125 Tablet] diphenhydrAMINE [Benadryl CAP] 25 mg PO Q8HR PRN #30 capsule 10/29/19 Unknown Rx Cyclobenzaprine [Flexeril] 10 mg PO QHS PRN #20 tablet 04/13/21 Unknown Rx Diclofenac 1% [Diclofenac 1% 1 applic TP BID #1 gel..gram. 04/13/21 Unknown Rx topical gel] Diclofenac Dr [Jean Carlos Hernández] 75 mg PO BID #30 tablet 04/13/21 Unknown Rx Allergies Allergy/AdvReac Type Severity Reaction Status Date / Time egg yolk Allergy Vomiting Verified 12/09/16 19:41 ibuprofen Allergy Swelling Verified 06/28/16 13:19 ED Review of Systems ROS: Stated complaint: HIP/BACK/LEG PAIN Other details as noted in HPI Comment: All other systems reviewed and negative ED Past Medical Hx - Past Medical History Previous Medical History?: Yes Hx Congestive Heart Failure: No Hx Diabetes: No Hx Sickle Cell Disease: No Hx Psychiatric Treatment: (depression) Hx Asthma: No Hx COPD: No Hx HIV: No Additional medical history: anemia,fibroids - Surgical History Past Surgical History?: Yes Additional Surgical History: tubilagation, PARTIAL HYSTERECTOMY - Social History Smoking Status: Current Every Day Smoker - Medications Home Medications: Home Medications Medication Instructions Recorded Confirmed Last Taken Type Ferrous Sulfate [Ferrous Sulfate 300 mg PO TID #2 bottle 12/11/16 Unknown Rx Oral Liq 300 Mg/5 Ml] Acetaminophen [Mapap] 1,000 mg PO QID PRN #30 tablet 10/29/19 Unknown Rx Amoxicillin/Potassium Clav 1 each PO BID #20 tablet 10/29/19 Unknown Rx [Augmentin 875-125 Tablet] diphenhydrAMINE [Benadryl CAP] 25 mg PO Q8HR PRN #30 capsule 10/29/19 Unknown Rx Cyclobenzaprine [Flexeril] 10 mg PO QHS PRN #20 tablet 04/13/21 Unknown Rx Diclofenac 1% [Diclofenac 1% 1 applic TP BID #1 gel..gram. 04/13/21 Unknown Rx topical gel] Diclofenac Dr [Voltaren Dr] 75 mg PO BID #30 tablet 04/13/21 Unknown Rx ED Physical Exam - General Limitations: No Limitations General appearance: alert, in no apparent distress - Head Head exam: Present: atraumatic, normocephalic - Eye Eye exam: Present: normal appearance - ENT ENT exam: Present: mucous membranes moist - Neck Neck exam: Present: normal inspection - Respiratory Respiratory exam: Present: normal lung sounds bilaterally. Absent: respiratory distress - Cardiovascular Cardiovascular Exam: Present: regular rate, normal rhythm. Absent: systolic murmur, diastolic murmur, rubs, gallop - GI/Abdominal GI/Abdominal exam: Present: soft, normal bowel sounds - Extremities Exam Extremities exam: Present: normal inspection, full ROM. Absent: tenderness, joint swelling, calf tenderness - Back Exam Back exam: Present: normal inspection, full ROM, tenderness, CVA tenderness (L). Absent: CVA tenderness (R) - Neurological Exam Neurological exam: Present: alert, oriented X3, CN II-XII intact, normal gait - Psychiatric Psychiatric exam: Present: normal affect, normal mood - Skin Skin exam: Present: warm, dry, intact, normal color. Absent: rash ED Course Vital Signs 04/13/21 07:38 Temperature 97.8 F Pulse Rate 82 Respiratory 12 Rate Blood Pressure 179/108 O2 Sat by Pulse 98 Oximetry - Reevaluation(s) Reevaluation #1: 04/13/21 21:04 Upon reevaluation patient reports feeling much better smiling in no acute distress. All labs are within normal limits CT negative. Patient waiting for discharge paperwork. Fluids being administered. ED Medical Decision Making - Lab Data Result diagrams: 04/13/21 18:26 04/13/21 18:26 - Radiology Data Radiology results: report reviewed, image reviewed CT ABDOMEN AND PELVIS WITHOUT CONTRAST HISTORY: Left flank pain. COMPARISON: None. TECHNIQUE: CT images of the abdomen and pelvis were obtained without administration of intravenous contrast. All CT scans at this location are performed using CT dose reduction for ALARA by means of automated exposure control. FINDINGS: Lungs/bones: Lung bases are clear. No acute osseous abnormality identified. Abdomen/pelvis: A couple punctate nonobstructive calyceal stones are seen predominantly in the upper pole left kidney. There is a small simple cyst in the midpole the right kidney. Kidneys and ureters otherwise unremarkable with no hydronephrosis. The urinary bladder is unremarkable. Several pelvic phleboliths are present and also phleboliths along the left retroperitoneum not to be confused with stone disease. The liver, gallbladder, spleen, pancreas, adrenals, and proximal GI tract appear unremarkable. Urinary bladder is unremarkable. Uterus is surgically absent. No pelvic free fluid. No acute colonic abnormality identified. The appendix is normal. IMPRESSION: 1. No acute abnormality identified. 2. Incidental findings as above. Signer Name: Henri Randall MD Signed: 04/13/2021 8:11 PM Workstation Name: [id number] Transcribed By: RAMONE Dictated By: Henri Randall MD Electronically Authenticated By: Henri Randall MD Signed Date/Time: 04/13/212010 - Medical Decision Making This is a 50-year-old female who p presented to the ED with left-sided flank pain radiating down most likely secondary to the passing stone or kidney stone. CT scan shows results, see report above. Discussed all findings with the patient. Discussed with patient to follow-up with her primary care physician. Urology/neurology referrals given to patient. Patient did report feeling better after administration of fluids and medication. Vital signs are normal she is in no acute distress. Patient has a neurological deficit throughout ED stay. Patient understand instructions feels better and is ready to go safe for discharge. Critical care attestation.: If time is entered above; I have spent that time in minutes in the direct care of this critically ill patient, excluding procedure time. ED Disposition Clinical Impression: Lumbar radiculopathy, acute, Flank pain, Sciatica, Kidney stone on left side Disposition: TO HOME OR SELFCARE Is pt being admited?: No Does the pt Need Aspirin: No Condition: Stable Instructions: Neuropathic Pain, Radicular Pain, Sciatica, [id number] Additional Instructions: Make sure to follow up with the primary care physician as discussed. Take all your medications as you've been prescribed. If you have any worsening symptoms or develop new symptoms please return to ED immediately. Prescriptions: Cyclobenzaprine [Flexeril] 10 mg PO QHS PRN #20 tablet PRN Reason: Muscle Spasm Diclofenac 1% [Diclofenac 1% topical gel] 1 applic TP BID #1 gel..gram. Diclofenac [Jean Carlos Hernández] 75 mg PO BID #30 tablet Referrals: PRIMARY CAREMD [Primary Care Provider] - 3-5 Days [facility] [Provider Group] - 3-5 Days [facility] [Provider Group] - 3-5 Days ANGÉLICA DICKERSON MD [Staff Physician] - 3-5 Days Time of Disposition: 21:47
[2021-04-13 18:37] LABS: Basophils % (Auto) 0.5 % (0.0-1.8); Eosinophils % (Auto) 0.3 % (0.0-4.3); Hemoglobin 15.2 gm/dl (10.1-14.3); Lymphocytes # (Auto) 1.8 K/mm3 (1.2-5.4); Lymphocytes % (Auto) 18.2 % (13.4-35.0); Mean Corpuscular HGB Conc 35 % (30-34); Mean Corpuscular Volume 93 fl (79-97); Monocytes # (Auto) 0.8 K/mm3 (0.0-0.8); Monocytes % (Auto) 7.9 % (0.0-7.3); Platelet Count 145 K/mm3 (140-440); Red Blood Count 4.73 M/mm3 (3.65-5.03); Red Cell Distribution Width 12.9 % (13.2-15.2)
[2021-04-13 18:59] LABS: Alanine Aminotransferase 6 units/L (7-56); Albumin 4.9 g/dL (3.9-5); BUN/Creatinine Ratio 20; Blood Urea Nitrogen 10 mg/dL (7-17); Calcium 11.6 mg/dL (8.4-10.2); Hemolysis Index 6
[2021-04-13 19:10] LABS: Bilirubin,Urine NEG (Negative); Blood,Urine SM (Negative); Color,Urine Yellow (Yellow); Mucus,Urine FEW /HPF
--- NOTE | 2021-04-13 20:16 | Cat Scan Report ---
CT ABDOMEN AND PELVIS WITHOUT CONTRAST HISTORY: Left flank pain. COMPARISON: None. TECHNIQUE: CT images of the abdomen and pelvis were obtained without administration of intravenous co ntrast. All CT scans at this location are performed using CT dose reduction for ALARA by means of au tomated exposure control. FINDINGS: Lungs/bones: Lung bases are clear. No acute osseous abnormality identified. Abdomen/pelvis: A couple punctate nonobstructive calyceal stones are seen predominantly in the upper pole left kidney. There is a small simple cyst in the midpole the right kidney. Kidneys and ureters otherwise unremarkable with no hydronephrosis. The urinary bladder is unremarkable. Several pelvic ph leboliths are present and also phleboliths along the left retroperitoneum not to be confused with sto ne disease. The liver, gallbladder, spleen, pancreas, adrenals, and proximal GI tract appear unremarkable. Urinary bladder is unremarkable. Uterus is surgically absent. No pelvic free fluid. No acute colonic abnormality identified. The appendix is normal. IMPRESSION: 1. No acute abnormality identified. 2. Incidental findings as above. Signer Name: Henri Randall MD Signed: 04/13/2021 8:11 PM Workstation Name: [id number]
== END 2021-04-13 22:00 | disposition home or self-care (01) ==
LOC: ED 06:46
DX: M54.16 Radiculopathy, lumbar region (principal); M54.42 Lumbago with sciatica, left side; N20.0 Calculus of kidney; F32.9 Major depressive disorder, single episode, unspecified; F17.200 Nicotine dependence, unspecified, uncomplicated; Z98.51 Tubal ligation status; Z98.890 Other specified postprocedural states; Z88.6 Allergy status to analgesic agent; Z91.012 Allergy to eggs; Z79.899 Other long term (current) drug therapy
CPT/HCPCS: 36415; 74176; 80053; 81001; 85025; 96361; 96374; 99284; J1885; J7030